=== PATIENT | female | born 1990 | race Caucasian/White ===

== ENCOUNTER 2019-11-11 12:31 | Emergency (ER) | payer BC, SELFPAY ==
[2019-11-11 12:34] VITALS: BP 149/77; PULSE 71; RESP 18; TEMP 36.7; O2SAT 99
--- NOTE | 2019-11-11 13:12 | ED.FEMALEGU ---
HPI - Female Genitourinary General Chief complaint: Urogenital-Female Stated complaint: medical examiner issues Time Seen by Provider: 11/11/19 12:40 Source: patient Mode of arrival: ambulatory Limitations: no limitations History of Present Illness HPI Narrative: This is a 29-year-old female that presents the emergency department for vaginal irritation since this morning. Reports she went and saw a skip pit worker because she thought she may have genital warts. Reports she was told that her vulva looked normal, but they took a swab just in case. Reports since she had that swab done she has had burning. Also reports frequency. Denies fever or hematuria. Related Data Home Medications Medication Instructions Recorded Confirmed No Home Medications 11/11/19 11/11/19 Allergies Allergy/AdvReac Type Severity Reaction Status Date / Time No Known Allergies Allergy Verified 11/11/19 12:38 Review of Systems Review of Systems: Narrative: CONSTITUTIONAL: Denies fever GASTROINTESTINAL: Denies abdominal pain, nausea, vomiting GENITOURINARY: Reports dysuria. Denies hematuria. All systems reviewed & are unremarkable except as noted in HPI and below PMFSH Past Medical History Medical History (Updated 11/11/19 @ 14:36 by Kendal Michelle PA-C) History of ADHD Surgical History Surgical History (Updated 11/11/19 @ 13:14 by Kendal Michelle PA-C) History of dilation and curettage Exam Narrative: Exam Narrative: GENERAL: Well-appearing, well-nourished, and in no acute distress. HEAD: Normocephalic, atraumatic. EYES: EOMI. CHEST: Clear to auscultation. No respiratory distress. No wheezes rales or rhonchi HEART: Regular rate and rhythm. No murmur heard. Normal peripheral pulses. ABDOMEN: Soft, nontender, nondistended, normal active bowel sounds. EXTREMITIES: Normal range of motion. No edema. SKIN: Warm, dry, no rash. NEURO: No focal deficits. Alert and oriented x3. PSYCH: Normal mood and affect PELVIC: Normal external genitalia. Mild cervical irritation. Mild amount of white cervical discharge. IUD strings in place Course Vital Signs Vital signs: Vital Signs Temperature 98.0 F 11/11/19 12:34 Pulse Rate 71 11/11/19 12:34 Respiratory Rate 18 11/11/19 12:34 Blood Pressure 149/77 H 11/11/19 12:34 Pulse Oximetry 99 11/11/19 12:34 Temperature 98.0 F 11/11/19 12:34 Pulse Rate 71 11/11/19 12:34 Respiratory Rate 18 11/11/19 12:34 Blood Pressure 149/77 H 11/11/19 12:34 Pulse Oximetry 99 11/11/19 12:34 MDM - Female Genitourinary MDM Narrative Medical decision making narrative: Patient presents the emergency department for vaginal irritation since this morning. Reports she had a swab done at her skip pit worker office and has had some burning since then. UA is normal. Trichomonas is negative. Genital culture, chlamydia and gonorrhea were sent. No obvious abnormalities on pelvic exam. Spoke with Dr. Peck. Plan was Silvadene cream and for her to follow-up again in clinic next week. Patient is stable and felt appropriate for further outpatient evaluation. She was given warnings to return to the ER Lab Data Attestation: I reviewed the patient's lab results. Labs: Lab Results 11/11/19 11/11/19 11/11/19 Range/Units 13:22 13:22 13:22 Urine Color Colorless (Yellow) Urine Appearance Clear (Clear) Urine pH 6.0 (5.0-9.0) Ur Specific [place] 1.006 (1.001-1.035) Urine Protein Negative (Negative) mg/dL Urine Glucose (UA) Negative (Negative) mg/dL Urine Ketones Negative (Negative) mg/dL Ur Blood (Man) Negative (Negative) Urine Nitrate Negative (Negative) Urine Bilirubin Negative (Negative) Urine Urobilinogen Negative (<2.0) mg/dL Leukocyte Esterase Rfl Negative (Negative) MARIELLE/UL C.trachomatis RNA (TMA) Pending N.gonorrhoeae RNA (TMA) Pending Trichomonas Direct ID Negative (Negative) UCG Bedside Result
[2019-11-11 13:34] LABS: Add Urine Microscopic? NO; Appearance Urine Clear (Clear); Bilirubin Urine Negative (Negative); Blood Urine Negative (Negative); Color Urine Colorless (Yellow); Glucose Urine UA Negative (Negative); Ketones Urine Negative (Negative); Leukocyte Esterase Ur Negative LEU/UL (Negative); Nitrate Urine Negative (Negative); Protein Urine Negative (Negative); Specific Grav Ur 1.006 (1.001-1.035); Urobilinogen Urine Negative mg/dL (<2.0)
== END 2019-11-11 14:46 | disposition home or self-care (01) ==
PROVIDERS: Physician Assistant; Emergency Provider Emergency Medicine; PCP Emergency Medicine
DX: N89.8 Other specified noninflammatory disorders of vagina (principal)
CPT/HCPCS: 81003; 81025; 87070; 87491; 87591; 87808; 99284

== ENCOUNTER 2020-10-09 08:57 | Outpatient (CLI) | payer OTHER, SELFPAY ==
--- NOTE | ~2020-10-09 | XR_ITS ---
EXAMINATION: XR knee RT 2V DATE: 10/09/2020 09:10 INDICATION: Right knee pain. TECHNIQUE: 2 views of right knee were obtained. COMPARISON: None. FINDINGS: Bone alignment is normal. No fracture. Joint spaces are normal. No knee joint effusion. IMPRESSION: 1. Normal right knee. Reviewed, dictated and finalized at location A. IMPRESSION: 1. Normal right knee.
== END 2020-10-09 08:58 | disposition home or self-care (01) ==
LOC: ANHIMG 09:01
PROVIDERS: PCP Emergency Medicine; Visit Provider Emergency Medicine
DX: M25.561 Pain in right knee (principal)
CPT/HCPCS: 73560

== ENCOUNTER 2021-01-10 11:01 | Outpatient (CLI) | payer OTHER, SELFPAY ==
[2021-01-12 03:25] LABS: Tissue Transglutaminase IgG Ab 3 U/mL (<6)
[2021-01-15 11:50] LABS: Tissue Transglutaminase IgA Ab 1 U/mL (<4)
== END 2021-01-10 11:02 | disposition home or self-care (01) ==
PROVIDERS: Visit Provider Internal Medicine Gastroenterology
DX: R19.4 Change in bowel habit (principal)
CPT/HCPCS: 36415; 83516

== ENCOUNTER → 2021-03-01 03:55 | Outpatient (CLI) | payer OTHER, SELFPAY ==
[2021-03-01 16:43] LABS: SARS-CoV-2 RNA PCR Negative
== END ==
PROVIDERS: Visit Provider Internal Medicine Gastroenterology
DX: Z01.812 Encounter for preprocedural laboratory examination (principal); Z20.822 Contact with and (suspected) exposure to COVID-19
CPT/HCPCS: C9803; U0003; U0005

== ENCOUNTER 2021-03-04 00:38 | Day surgery (SDC) | payer OTHER, SELFPAY ==
[2021-02-15 14:44] VITALS: BMI 24.5
[2021-03-04 11:10] VITALS: BP 110/72; PULSE 65; RESP 18; TEMP 36.6; O2SAT 99
[2021-03-04] MEDS: LACTATED RINGERS 1,000 ML 150 ML IV CONT (11:41)
--- NOTE | 2021-03-04 11:53 | P.PNAN_ITS ---
Anes - Initial Pre Proc Eval Procedure: Operation Date: 03/04/21 13:00 Proposed Procedures p Colonoscopy - Ayad Garza MD s [facility] Hemorrhoid Treatment - Ayad Garza MD Date/Time: 03/04/21 11:53 Surgeon: Ayad Garza MD Pre Op Diagnosis: change in bowel habits, hemorrhoids Patient Data Age: 30 Gender: F Height: 1.65 m Weight: 66.8 kg Last Vital Signs Temp 97.8 F 03/04/21 11:10 Pulse 65 03/04/21 11:10 Resp 18 03/04/21 11:10 BP 110/72 03/04/21 11:10 Pulse Ox 99 03/04/21 11:10 Allergies Allergy/AdvReac Type Severity Reaction Status Date / Time No Known Allergies Allergy Verified 03/04/21 11:09 Home Medications Medication Instructions Recorded Confirmed Type No Home Medications 11/11/19 02/15/21 History Patient hx anesthesia problems: none Family hx anesthesia problems: none Results Review: All pre-operative results and documents have been reviewed as part of the pre-operative evaluation. [facility] Past Medical History Medical History (Updated 01/10/21 @ 10:58 by Ayad Garza MD) Bowel habit changes Hemorrhoid History of ADHD Tobacco abuse Surgical History Surgical History History of dilation and curettage Social History Social History Smoking status: Current some day smoker Tobacco type: e-cigarettes/vaping Alcohol intake: current Living arrangements: with family Spiritual care concerns: No Anes - Eval Final PreProcedure Day of Procedure 03/04/21 11:53 Patient weight: normal Heart: regular rate and rhythm Lungs: clear to auscultation Airway: Mallampati scale class II Neurological: alert and oriented Last oral intake: >/= 8 hours ASA classification: II Emergent: no Anesthetic plan: proceed Anesthesia type and monitoring: general GIVS and standard monitoring Results Review: All pre-operative results and documents have been reviewed as part of the pre-operative evaluation. Informed Consent: The patient's anesthetic plan and its attendant risks and benefits were discussed with the patient/family/POA. Questions were solicited and answers provided to the satisfaction of the patient/family/POA.
--- NOTE | 2021-03-04 12:58 | PM.HPGS ---
History of Present Illness History of Present Illness Consent: Risks, benefits, and alternatives have been discussed and questions answered. Patient agrees to proceed with procedure. Chief complaint: change in bowel habits, hemorrhoids Narrative: Jen Chirinos is a 30 year old female with IBS and bowel habit changes after discontinued adderall and also hemorrhoids, never had colonoscopy Review of Systems Constitutional: Constitutional: Denies headache(s) and Denies weakness Eyes: Eyes: Denies blurry vision ENT: Reports Normal hearing present, Denies headache(s) and Denies neck pain Cardiovascular: Cardiovascular: Denies chest pain and Denies dyspnea Respiratory: Respiratory: Denies dyspnea Gastrointestinal: Gastrointestinal: Reports no additional gastrointestinal complaints Genitourinary: Genitourinary: Denies dysuria Musculoskeletal: Musculoskeletal: Denies neck pain Integumentary/Breasts: Skin/Breast: Denies dry skin Neurologic: Reports Normal hearing present, Denies headache(s) and Denies weakness Psychiatric: Psychiatric: Denies anxiety Endocrine: Endocrine: Denies change in body appearance Hematologic/Lymphatic: Hematologic/Lymphatic: Denies easy bleeding Allergic/Immunologic: Allergic/Immunologic: Denies urticaria PMFSH Past Medical History Medical History (Updated 01/10/21 @ 10:58 by Ayad Garza MD) Bowel habit changes Hemorrhoid History of ADHD Tobacco abuse Surgical History Surgical History History of dilation and curettage Social History Social History Smoking status: Current some day smoker Tobacco type: e-cigarettes/vaping Alcohol intake: current Living arrangements: with family Spiritual care concerns: No Meds Home Medications and Allergies Home Medications Medication Instructions Recorded Confirmed Type No Home Medications 11/11/19 02/15/21 History Allergies Allergy/AdvReac Type Severity Reaction Status Date / Time No Known Allergies Allergy Verified 03/04/21 11:09 Vital Signs Vital Signs - 24 hr 03/04/21 11:10 Temperature 97.8 F Pulse Rate 65 Respiratory Rate 18 Blood Pressure 110/72 Pulse Oximetry 99 Exam Const: General: comfortable and no acute distress HENMT: General nose exam: Normal nares present Eyes: General: appearance normal, both eyes and all related structures Neck: Neck: no JVD Resp: Auscultation: clear to auscultation bilaterally Cardio: Rate: regular rate Rhythm: regular rhythm GI: Inspection: non-distended GI Palp: Yes Soft to palpation Skin: General skin exam: normal color Neuro: General: gait normal Speech: normal speech Extrem: General: normal to inspection Psych: Mental Status: mental status grossly normal Assessment and Plan Assessment and plan (1) Bowel habit changes: Code(s): R19.4 - Change in bowel habit Status: Acute Assessment and Plan: colonoscopy (2) Hemorrhoid: Code(s): K64.9 - Unspecified hemorrhoids Status: Acute Assessment and Plan: treat hemorrhoids with IRC
[2021-03-04 13:21] VITALS: BP 97/58; PULSE 65; RESP 21; O2SAT 99
--- NOTE | 2021-03-04 13:21 | W.PM.PROC2 ---
Procedure Note - Detailed Date of Procedure 03/04/21 Pre-op Diagnosis change in bowel habits, hemorrhoids Post-op Diagnosis same Procedure Performed infrared coagulation (IRC) Surgeon Ayad Garza MD Indications hemorrhoids Description of Procedure rectal exam without lesions or fissure. As soon as we finished colonoscopy and she was still under sedation, I introduced anoscope and found grade II internal hemorrhoids at 12 o'clock position, non-bleeding, then used IRC probe total of 5 times at site for 1.5 seconds each time. Condition stable
[2021-03-04 13:31] VITALS: BP 110/67; PULSE 64; RESP 18; O2SAT 99
[2021-03-04 13:41] VITALS: BP 109/62; PULSE 62; RESP 19; O2SAT 100
== END 2021-03-04 13:50 | disposition home or self-care (01) ==
PROVIDERS: Visit Provider Internal Medicine Gastroenterology
PROC: 0DJD8ZZ Inspection of Lower Intestinal Tract, Via Natural or Artificial Opening Endoscopic (ICD-10-PCS; CPT 45378; principal; 2021-03-04 13:00)
PROC: (CPT 46930; 2021-03-04 13:00)
DX: R19.4 Change in bowel habit (principal); K64.1 Second degree hemorrhoids; K58.9 Irritable bowel syndrome, unspecified; K63.5 Polyp of colon; F17.290 Nicotine dependence, other tobacco product, uncomplicated
CPT/HCPCS: 46930; 45385; 88305; J2704; J7120

== ENCOUNTER 2023-10-28 19:36 | Emergency (ER) | payer OTHER, SELFPAY ==
[2023-10-28 19:46] VITALS: BP 132/71; PULSE 70; RESP 16; TEMP 37; O2SAT 99
--- NOTE | 2023-10-28 19:49 | ED.SKABFB ---
HPI - Skin/Abscess/Foreign Bdy General Chief complaint: Animal Bite Stated complaint: bee sting right arm Time Seen by Provider: 10/28/23 19:50 Source: patient Mode of arrival: ambulatory Limitations: no limitations History of Present Illness HPI narrative: 33-year-old female presents with complaint of redness, warmth and swelling to right upper extremity from bee sting. Bee sting happened approximately 2 days ago. Patient took 1 dose of Benadryl today. Has been applying Benadryl cream. Reports redness, swelling becoming worse. No difficulty breathing or swelling. All systems reviewed and negative except as noted above. Related Data Home Medications Medication Instructions Recorded Confirmed cholecalciferol (vitamin D3) 10 10 mcg PO DAILY 03/09/23 08/18/23 mcg (400 unit) capsule ergocalciferol (vitamin D2) 1,250 10/28/23 mcg (50,000 unit) capsule Allergies Allergy/AdvReac Type Severity Reaction Status Date / Time No Known Allergies Allergy Verified 08/18/23 08:54 Review of Systems Review of Systems: CONSTITUTIONAL: Denies fever, chills, or sweats. EYES: Denies visual changes, redness, or discharge. ENT: Denies rhinorrhea, congestion, sore throat, or otalgia. CARDIOVASCULAR: Denies chest pain, palpitations, or edema. RESPIRATORY: Denies cough or dyspnea. GASTROINTESTINAL: Denies abdominal pain, nausea, vomiting, or diarrhea. GENITOURINARY: Denies dysuria or hematuria. SKIN: Denies rash or itching. Reports swelling, redness and warmth to right upper arm. MUSCULOSKELETAL: Denies back pain, joint pain, or myalgia. NEUROLOGIC: Denies headache, numbness, or weakness. PSYCHIATRIC: Denies anxiety or depression. All other systems reviewed are negative, except as documented in HPI. 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 There is no relevant family history pertinent to the presenting complaint. Exam Narrative: GENERAL: This is a well-nourished, well-developed patient, in no apparent distress. HEAD: normocephalic, atraumatic. EYES: PERRL. Sclera clear/white. Vision is grossly intact. EARS: External ears normal NOSE: External nose normal NECK: Neck supple, non-tender without lymphadenopathy, masses or thyromegaly. CARDIOVASCULAR: Regular rate and rhythm without murmurs, gallops, or rubs. RESPIRATORY: Clear to auscultation. Breath sounds equal bilaterally. No wheezes, rales, or rhonchi. SKIN: warm, Dry, intact with no suspicious lesions or rash, good texture and turgor. erythethma with swelling and warm to posterior aspect R upper arm approx. 6 x8cm NEURO: awake, alert, and oriented to person, place and time. There were no obvious focal neurologic abnormalities. EXTREMITIES: No joint tenderness, effusion, or edema noted. Course Course Level of Care: Express Care Visit Vital Signs Vital signs: Makenna
== END 2023-10-28 20:00 | disposition home or self-care (01) ==
PROVIDERS: Emergency Provider Nurse Practitioner Family; PCP Nurse Practitioner Family
DX: T63.441A Toxic effect of venom of bees, accidental (unintentional), initial encounter (principal); F17.290 Nicotine dependence, other tobacco product, uncomplicated
CPT/HCPCS: 99213; G0463

== ENCOUNTER 2024-05-08 19:11 | Emergency (ER) | payer OTHER, SELFPAY ==
--- NOTE | ~2024-05-08 | XR_ITS ---
HISTORY: left heel pain from jumping in heels COMPARISON: None TECHNIQUE: 2 views of the left foot were performed FINDINGS: No acute fracture or dislocation is appreciated. No significant degenerative disease is noted. The base of the fifth metatarsal is intact. No calcaneal spur is noted. No significant soft tissue swelling is present. IMPRESSION: No acute fracture, as detailed above Reviewed, dictated and finalized at location A. [facility]
[2024-05-08 19:16] VITALS: BP 118/68; PULSE 72; RESP 18; TEMP 36.6; O2SAT 99
--- NOTE | 2024-05-08 19:57 | ED.LOWEXIN ---
HPI - Extremity Injury (Lower) General Chief Complaint: Extremity Injury, Lower Stated Complaint: left foot injury- unable to bare weight Time Seen by Provider: 05/08/24 19:46 Source: patient Mode of arrival: ambulatory Limitations: no limitations History of Present Illness HPI Narrative: This is a 33-year-old female who presents to the ED for chief complaint of left foot injury that occurred just prior to arrival. Patient states that she was wearing reports with a healing the and she was jumping up and down when the injury happened. States that she felt her foot roll of little bit and had subsequent pain to the heel. Denies ankle pain. Denies any pop. Denies numbness, weakness or any further injury. Related Data Home Medications ?Medication ?Instructions ?Recorded ?Confirmed ?Last Taken ?Type cholecalciferol (vitamin D3) 10 10 mcg PO DAILY 03/09/23 02/16/24 Unknown History mcg (400 unit) capsule ergocalciferol (vitamin D2) 1,250 10/28/23 02/16/24 Unknown History mcg (50,000 unit) capsule Allergies Allergy/AdvReac Type Severity Reaction Status Date / Time No Known Allergies Allergy Verified 05/08/24 19:12 Review of Systems Review of Systems: All systems as dictated in HPI [facility] Past Medical History Medical History ) Bowel habit changes Hemorrhoid History of ADHD Tobacco abuse Surgical History Surgical History ) History of dilation and curettage (2015) History of ear surgery (2014) left Family History Family History ) Father Diabetes mellitus Hypertension Mother Hypertension Diabetes mellitus Depression Sibling Hypertension Social History Social History ) Social History: 02/13/24 somewhat confident with medical forms/Received assistance for food and paying for medication Smoking status: Current some day smoker Tobacco type: e-cigarettes/vaping Alcohol intake: current Substance use: never Substance use type: does not use Do You Feel Safe in your Home?: Yes Lack of Transportation: No Lack of Food: Sometimes True Current Housing: I Have Housing Concerned About Future Housing: No Difficulty Paying Gas/Electric Bills: Decline to Answer Difficulty Paying for Meds: No Currently Unemployed: No Education: Trade/Vocational Certificate Difficulty w/ Childcare or Family Care: No Living arrangements: alone Occupation/Education: occupation 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 HEAD: Normocephalic, atraumatic. EYES: PERRLA and EOMI. ENT: Nares clear, no rhinorrhea or epistaxis. Mucous membranes moist. Oropharynx without tonsillar hypertrophy exudate or other lesions. NECK: Supple. No adenopathy or masses. CHEST: No respiratory distress. Clear to auscultation. No wheezes rales or rhonchi HEART: Regular rate and rhythm. No murmur heard. Normal peripheral pulses. ABDOMEN: Soft, nontender, nondistended, normal active bowel sounds. MSK: Left lower extremity: Tender most over the calcaneus reports. No medial or lateral malleolus tenderness. Cummings test negative. No bruising or swelling. Right lower extremity: Benign SKIN: Warm, dry, no rash. NEURO: Alert and oriented x4. No focal deficits. PSYCH: Normal mood and affect. Course Vital Signs Vital signs: Vital Signs Temperature 97.8 F 05/08/24 19:16 Pulse Rate 72 05/08/24 19:16 Respiratory Rate 18 05/08/24 19:16 Blood Pressure 118/68 05/08/24 19:16 Pulse Oximetry 99 05/08/24 19:16 Temperature 97.8 F 05/08/24 19:16 Pulse Rate 72 05/08/24 19:16 Respiratory Rate 18 05/08/24 19:16 Blood Pressure 118/68 05/08/24 19:16 Pulse Oximetry 99 05/08/24 19:16 MDM - Extremity Injury (Lower) MDM Narrative Medical decision making narrative: This is a 33-year-old female who presents to the ED for left foot injury just prior to arrival. Vitals normal. Exam remarkable for the above. Left foot x-ray showed no acute osseous findings. Cummings test is negative for Achilles injury. Presentation consistent with contusion. Patient will be discharged in stable condition. Supportive measures discussed and return precautions given. Patient is understanding and agreeable with plan for discharge with PCP follow-up. Discharge Plan Discharge Clinical Impression: Contusion of foot, left Patient Disposition: Home, Self-Care Condition: Stable Instructions: Antibiotic Form Additional Instructions: Your exam and imaging today are reassuring. Please take Tylenol and ibuprofen regularly for pain control. Ice and elevate the foot at home. If you have any new or worsening symptoms please return to the ER for further evaluation. Patient Language: Bahamian Prescriptions: No Action ergocalciferol (vitamin D2) 1,250 mcg (50,000 unit) capsule triamcinolone acetonide 0.1 % cream 1 applic topical BID PRN (Reason: insect bite) Qty: 30 0RF cholecalciferol (vitamin D3) 10 mcg (400 unit) capsule 10 mcg PO DAILY valacyclovir 1 gram tablet 1,000 mg PO DAILY Qty: 90 0RF dextroamphetamine-amphetamine [Adderall XR] 20 mg capsule,extended release 24hr 20 mg PO DAILY Qty: 30 0RF Follow-up/Referrals: Eloisa Chiang APN-C [Primary Care Provider] -
== END 2024-05-08 20:34 | disposition home or self-care (01) ==
PROVIDERS: Emergency Provider Physician Assistant; PCP Nurse Practitioner Family
DX: S90.32XA Contusion of left foot, initial encounter (principal); X58.XXXA Exposure to other specified factors, initial encounter
CPT/HCPCS: 73620; 99283

== ENCOUNTER 2025-01-23 13:20 | Outpatient (CLI) | payer OTHER, SELFPAY ==
--- OUTSIDE RECORDS SUMMARY | 2013-09-17 13:24 | XMS_ITS | Continuity of Care Document ---
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 Role Phone Unavailable Unavailable Unavailable Medications Medication Instructions Dosage Effective Dates (start - stop) Status Comments Formula Tab take 1 tablet by or al route every day - Active ferrous sulfate 325 mg (65 mg iron) Tab take 1 tablet (325MG) by ORAL route every day 325 MG - Active Procedures Procedure Date Wet олег, including preparations of va ginal, cervical or skin specimens OFFICE OUTPT EST 25 MIN COLLECTION OF VENOUS BLOOD BY VENIPUNCTU RE care, at-risk assessment care, at-risk enhanced service; antepartum management MENTAL HEALTH ASSESSMENT, BY NON-PHYSICI AN URINE TEST, BY VISUAL COLOR CO MPARISON METHODS Advance Directives Directive Yes / No Effective Date File Name No Information Encounters Encounter Description Practice Location Reason(s) For Visit Diagnoses Date Provider Providers Copied on Encounter [employer] [facility] , [address], [place], [place], [id number], [place] tel:[phone] [facility] [place] No Information 4 No Information OFFICE OUTPT EST 25 MIN [facility] , [address], [place], [place], [id number], [place] tel:[phone] [facility] [place] IOB (chief complaint) Supervision of other normal 2 No Information [facility] , [address], [place], [place], [address], [place] tel:[phone] [facility] [place] Supervision of normal first 2 [facility]. [address], [place], [place], [id number], [place]. tel:[phone] [facility] , [address], [place], [place], [address], [place] tel:[phone] [facility] [place] test (chief complaint) examination or test, unconfirmed 2 No Information Family History Family Member Type Diagnosis Age At Onset Father Problem (finding) hypertension Mother Problem (finding) hypertension Payers Payer name Insurance type Covered alliance party ID Authoriza tichrist(s) Medicaid - Medical [id number] Social History Type Description Quantity Date Captured Comments Sex Female Smoking Status No Information Sexual Orientation Straight or heterosexual Chief Complaint And Reason For Visit No Information Reason For Referral Reason For Referral No Information Plan Of Treatment Date Type Action Status Referral Referred To: [facility] [address] [place], [phone] Ordered: Referral: [facility]. Radiology. Appointment date/timeframe: 10/21/2011 ordered Future Order: Lab Order Wet Prep (Wet Prep), Appointment on: Ordered History Of Present Illness Encounter Date Complaint History Of Prese nt Illness No Information Functional Status Date Functional Assessmen t No Information Instructions Date Instruction Additional Infor mation No Information Assessments Type Assessment Date No Information Patient Care Teams Name Effective Dates (start - stop) Status Members No Information
--- OUTSIDE RECORDS SUMMARY | 2020-12-07 05:47 | XMS_ITS | Continuity of Care Document ---
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 chest pain or palpitation. Her thyroid uptodate scan was denied by insurance. Her recent tSh was actually normal ear pain1 Pt c/o intermitt ent itching left ear canal for two weeks. Pt denies any ear pain Pt denies any hearing loss. 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 GERD1 Pt has frequent GERd. pt is noncompliant with zantac. Pt never took zantac BID and she was taking here and there and she has not been on anything for a while Pt has daily GERd recently Pt denies any nausea, vomiting or abd pain weight gain1 Pt has been gain ing weight. pt gained 20 pounds during last 6 months. pt has been working more and she has not been eating healthy. pt is not very active ADD Pt has ADD Pt ta kes adderall and doing ok. Pt feels more focused. Pt feels more energy thyroid1 Pt has subclinic al hyperthyroidism. Pt has not done lab or thyroid uptake scan yet PHysical Pt needs annual physical pt has ADd, inattentive type. Pt takes addeall and doing ok pt feels more focused. Pt denie any chest pain or headache. Pt denies any weight gain or weight loss thyroid1 Pt denies any ch est pain or headache. Pt is noncompliant with thyroid uptake study and repeat thyroid lab. Pt has slighlty suppressed TSH but normal t4 ADD Pt has ADD., rodo ttentive type .Pt has difficlty with focus and concentration. Pt doing ok with adderall. Pt feels more focused cough1 Pt c./o producti ve coughing, running nose, sore throat, cold chill, mild nasuea for one week Pt denies any vomiting or diarrhea. Pt denies any fever but feels warm. pt went to ER and she was told that she has viral infection. Pt feels maliase and fatigue and some muscle pain. Pt feels very fatigue. Pt feels mild sob with coughing. GERD1 Pt has GERD. Pt takes zantac PRn only. Pt states that she does not have symptoms daily. Pt denies any abd pain mold Pt currently leslie es in a house with mold in the basement. Pt states that she is not sick with URI all the time except for last week. Pt states that the landlord is working for mold removal now. The mold grow is in the basement. Pt denies any sob. 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 Pt notices frequent burping and some burning sensation around her esophagus area thyroid1 Pt has slightly suppressed TSH with normal T4. Pt has normal TPO Pt denies any chest pain or palpitation PT denies any headache ADD Pt has aDD. pt h as diffiuclty with focus and concentration. Pt takes adderall and doing ok. Pt denie any abd pain Physical Pt needs annual physical. Pt has ADD Pt takes adderall and doing ok. Pt feels more enregy and more focused. Pt denies any abd pain or any appetite loss. Pt denies any anxiety anymore and she has not been taking any buspar. Pt denies any depression or any suicidal thought. Pt denies any other complaints ADD Pt has ADD pt ta kes adderall and doing ok. Pt feels more focused and more energy. Pt feels better organized. Pt denies any abd pain or appetite loss anxiety1 Pt states that s he has been under a lot of stress recently. Pt has difficulty sleeping. Pt denies any depression or any suicdial thought. Pt wants something for anxiety and stress. Pt denies any crying spells. Pt did not try lamictal. Pt does not want mood stabilizer. pt has been having panic attacks with hyperventilation. NO chest pain thyroid disorder Pt has slighlty suppressed tSH but she has normal T4. Her thyroid ultrasound is normal. Pt denies any chest pain or headache tobacco Pt smokes about 1 ppd. Pt wants to try quit smoking. Pt denies any SOB mood Pt states that s he has been having very bad mood swings lately. Pt states that she has high and lows and sometimes she is very irritible and is very angry. Pt sometimes is very irrational and sometimes even violent towards her financee. Pt denies any suicidal or homicidal thought. Pt denies any crying spells. Pt states that she does not feel depressed or anxious Pt denies hearing voices low D Pt has mild low vitamin D. Pt denies any history of spontaneous fracture UTI1 Pt c/o intermitt ent urinary frequency for several weeks. Pt denies any flank pain, fever, chill. Pt took bactrim for several days but then accidently lost her pill. thyroid Pt has chronical ly slighlty suppressed TSH. Pt denies any chest pain, headache or palpitation. aDD Pt takes adderal l. Pt has ADD Pt doing ok. Pt feels more energy and better focused. Pt states that sometimes she takes two addearll per day cough Additional infor mation: Pt c/o chest congestion coughing up phlegm with green color for one week Pt feels hoarseness. Pt denies any sore throat or ear pain. No fever. GERD1 Pt denies any GE Rd symptoms Pt states that ever since she stopped bahamian and spicy food, she has not had any GERD thyroid Pt has suppresse d TSH. Pt does not want to do ultrasound. Pt deneis any chest pain or headache PHysical Pt needs annual physical. Pt denies any gERd symptoms. Pt has ADd. Pt takes adderall and doing ok. Pt denies any abd pain or appetite loss. Pt denies any other complaints Instructions Date Instruction Additional Infor mation Increase physical activity Relat ed to Attention deficit Quit smoking Related to Encou nter for general adult medical exam w abnormal findings Special diet education Related t o Body mass index (BMI) 24.0-24.9, adult Quit smoking Related to Abnor mal weight loss Prescribed dietary intake Relate d to Body mass index (BMI) 27.0-27.9, adult Quit smoking Related to Atten tion deficit Special diet education Related t o Body mass index (BMI) 27.0-27.9, adult Increase physical activity Relat ed to Otalgia, left ear Weight management Related to [place] Coordinator lgia, left ear Special diet education Related t o Body mass index (BMI) 29.0-29.9, adult Quit smoking Related to Atten tion deficit Quit smoking Related to Encnt r for general adult medical exam w/o abnormal findings Prescribed Activity and Exercise Education Related to Dietary Surveillance and Counseling Prescribed Diet Educ ation/Lifestyle Education Regarding Diet Related to Dietary Surveillance and Counseling Prescribed Activity and Exercise Education Related to Dietary Surveillance and Counseling Prescribed Diet Educ ation/Lifestyle Education Regarding Diet Related to Dietary Surveillance and Counseling Quit smoking Related to Atten tion deficit Dietary counseling Related to Di etary surveillance counseling Decrease caloric intake Related to Dietary surveillance counseling Assessments Type Assessment Date No Information
--- OUTSIDE RECORDS SUMMARY | 2025-01-23 15:48 | XMS_ITS | Clinical Summary ---
Author Organization [facility] Address [address] [place] [address] Care Team Providers Care Char Belt Operator Name Role Phone Malik Sanz MD Primary Care Provider [phone] Allergies No known active allergies Medications dextroamphetami ne-amphetamine (ADDERALL) 20 mg tablet TAKE 1 TABLET BY MOUTH EVERY MORNING AND 1/2 TABLET BY MOUTH AROUND 1PM DAILY 10/03/2020 Active ergocalciferol (VITAMIN D) 50,000 unit capsule Take 50,000 Units by mouth 10/03/2020 Active famotidine (PEPCID) 40 mg tablet Take 40 mg by mouth daily 10/02/2020 Active valACYclovir (VALTREX) 500 mg tablet Take 500 mg by mouth daily 10/03/2020 Active Active Problems Problem Noted Date Diagnosed Date Pes anserine bursitis of the right knee 10/13/19 21 Surgical History Surgery Date Site/Laterality Comments EAR SURGERY Left DILATION AND CURETTAGE OF UTERUS 05/11/2017 - 05/10/2018 Medical History Medical History Date Comments ADHD (attention deficit hyperactivity disorder) Family History Medical History Relation Name Comments Arthritis Father Diabetes Father Gout Father Arthritis Mother Diabetes Mother Relation Name Status Comments Father Mother Social History Tobacco Use Types Packs/Day Years Used Date Smoking Tobacco: Every Day Personal Safety Answer Date Recorded Getting School Help Needed Not on file 06/30 Comments Unknown Sex and Gender Information Value Date Recorded Sex Assigned at Not on file Legal Sex Female 9:28 AM [employer] Gender Identity Not on file Sexual Orientation Not on file 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 Not on file Not on file Obstetrics History Last Filed Vital Signs Vital Sign Reading Time Taken Comments Blood Pressure - - Pulse - - Temperature - - Respiratory Rate - - Oxygen Saturation - - Inhaled Oxygen Concentration - - Weight 70.3 kg (155 lb) 10/12/2020 8:47 AM CDT Height 165.1 cm (5' 5) 10/12/2020 8:47 AM CDT Body Mass Index 25.79 10/12/2020 8:47 AM CDT Plan of Treatment Not on file Insurance [facility] Care Teams Char Belt Operator Relationship Specialty Start Date End Date Malik Sanz MD [facility] [place] [address] [place] [address] PCP - General Family Medicine 09/06/20
--- OUTSIDE RECORDS SUMMARY | 2025-01-23 15:48 | XMS_ITS | Clinical Summary ---
Author Organization [facility] Address [address] [place] [id number] Phone Care Team Providers Care Magnet Placer Name Role Phone Malik Sanz MD Primary Care Provider [phone] Allergies No known active allergies Medications dextroamphetami ne-amphetamine (ADDERALL) 20 mg tablet dextroamphetamin e-amphetamine 20 mg tablet Active levonorgestreL (Mirena) 20 mcg/24 hours (5 yrs) 52 mg IUD Mirena 20 mcg/24 hours (5 yrs) 52 mg intrauterine device Take by intrauterine route. 7 Active doxycycline hyclate (VIBRAMYCIN) 100 mg capsule Take 1 Capsule (100 mg) by mouth 2 times daily. 14 Capsule 0 Active lidocaine (XYLOCAINE) 2 % Solution Apply 5 mL to affected area every 6 hours as needed for Pain. 40 mL 0 Active Active Problems Problem Noted Date Diagnosed Date Tobacco use 11/18/2019 Social History Tobacco Use Types Packs/Day Years Used Date Smoking Tobacco: Every Day Cigarettes Alcohol Use Standard Drinks/Week Comments No 0 (1 standard drink = 0.6 oz pur e alcohol) Comments Unknown Sex and Gender Information Value Date Recorded Sex Assigned at Not on file Legal Sex Female 2:46 AM CDT Gender Identity Not on file Sexual Orientation Not on file Last Filed Vital Signs Vital Sign Reading Time Taken Comments Blood Pressure 124/72 11/18/2019 8:47 AM CDT Pulse 92 08/22/2012 4:00 AM CDT Temperature 36.4 C (97.6 F) 11/18/2019 8:47 AM CDT Respiratory Rate 18 11/18/2019 8:47 AM CDT Oxygen Saturation 100% 11/18/2019 8:47 AM CDT Inhaled Oxygen Concentration - - Weight 65.8 kg (145 lb) 11/18/2019 8:47 AM CDT Height 165.1 cm (5' 5) 11/18/2019 8:47 AM CDT Body Mass Index 24.13 11/18/2019 8:47 AM CDT Plan of Treatment Health Maintenance Due Date Last Done Comments DTAP/TDAP/TD VACCINES (1 - Tdap) 09/13/2010 HEPATITIS B VACCINES (1 of 3 - 19+ 3-dose series) 10/2010 HPV/Cotest (21-29) 09/13/2012 HPV VACCINES (1 - 3-dose SCDM series) 09/13/2018 CERVICAL CANCER SCREENING 09/13/2021 HPV/Cotest (30-65) 09/13/2021 PAP SMEAR 09/13/2021 INFLUENZA VACCINE (#1) 2024 Insurance PREFERRED Care Teams Magnet Placer Relationship Specialty Start Date End Date Malik Sanz MD PCP - General Family Practice 08/22/12
--- OUTSIDE RECORDS SUMMARY | 2025-01-23 15:48 | XMS_ITS | Clinical Summary ---
Author Organization [facility] [facility] Address [address] [address] Care Team Providers Care Cone Cleaner Name Role Phone Malik Sanz MD Primary Care Provider [phone] Source Comments [facility] [facility],non-owned Affiliates and Associated Physician Practices is amultiple site organization consisting of ambulatory clinics and hospital sitesin [place], [place], [place] and [place]. This disclosure is being madepursuant to the Care Everywhere program and may not contain all informatio navailable regarding this patient. Last updated 18[employer] Allergies No known active allergies Medications * Be aware that medications may not be up to date on this document. Alwaysverify current medications with the patient. acyclovir (ZOVIRAX) 200 MG capsuleIndicati ons:Recurrent Herpes Simplex of Genital Take 400 mg by mouth 2 times daily. Indications: Recurrent Genital Herpes Active Social History Tobacco Use Types Packs/Day Years Used Date Smoking Tobacco: Every Day Cigarettes 0.5 6 Smokeless Tobacco: Never Tobacco Cessation:Ready to Q uit: No; Counseling Given: Yes Alcohol Use Standard Drinks/Week Comments No 0 (1 standard drink = 0.6 oz pur e alcohol) Comments Yes Sex and Gender Information Value Date Recorded Sex Assigned at Not on file Legal Sex Female 1:02 PM WATER SANDER Gender Identity Not on file Sexual Orientation Not on file Last Filed Vital Signs Vital Sign Reading Time Taken Comments Blood Pressure 91/51 08/28/2011 9:31 AM CDT Pulse 65 08/28/2011 9:31 AM CDT Temperature 36.8 C (98.2 F) 08/28/2011 9:31 AM CDT Respiratory Rate 16 08/28/2011 9:31 AM CDT Oxygen Saturation 98% 08/28/2011 9:31 AM CDT Inhaled Oxygen Concentration - - Weight 69.4 kg (153 lb) 08/27/2011 11:38 PM CDT Height 167.6 cm (5' 6) 08/27/2011 11:38 PM CDT Body Mass Index 24.69 08/27/2011 11:38 PM CDT Plan of Treatment Health Maintenance Due Date Last Done Comments HIV SCREENING 09/13/2006 HEPATITIS C SCREENING 09/09/2009 DTAP/TDAP/TD VACCINES (1 - Tdap) 09/13/2010 HEPATITIS B VACCINE (1 of 3 - 19+ 3-dose series) 09/13/2010 HPV VACCINE (1 - 3-dose SCDM series) 09/13/2018 DEPRESSION SCREENING 05/11/2024 COVID-19 VACCINE (1 - 2023-2 5 season) 2025 INFLUENZA VACCINE (#1) 2025 ZOSTER VACCINE (1 of 2) 09/13/2041 Respiratory Syncytial Virus (RSV) Vaccine Pt: or over 60 yrs (1 - 1-dose 75+ series) 09/13/2066 HIB VACCINE Aged Out No longer eligi ble based on patient's age to complete this topic MENINGOCOCCAL (Group B) VACC INE SHARED DECISION-MAKING Aged Out No longer eligibl e based on patient's age to complete this topic MENINGOCOCCAL GROUPS A/C/Y/W VACCINE Aged Out No longer eligible b ased on patient's age to complete this topic PNEUMOCOCCAL VACCINE Aged Out No long er eligible based on patient's age to complete this topic Insurance [facility] Advance Directives * FULL RESUSCITATION (Latest Code Status on File) Date Activated Date Inactivated Comments 06/02/2011 12:16 AM 06/04/2011 3:12 AM Care Teams Cone Cleaner Relationship Specialty Start Date End Date Malik Sanz MD PCP - General 03/05/21
--- OUTSIDE RECORDS SUMMARY | 2025-01-23 15:48 | XMS_ITS | Clinical Summary ---
Author Organization [facility] Address [address] [place] [id number] Care Team Providers Care Traffic Safety Administrator Name Role Phone Malik Sanz MD Primary Care Provider [phone] Allergies No known active allergies Medications No known medications Family History Medical History Relation Comments Hypertension Father Hypertension Mother Relation Status Comments Father Alive Mother Alive Social History Tobacco Use Types Packs/Day Years Used Date Smoking Tobacco: Former Cigarettes Smokeless Tobacco: Never Alcohol Use Standard Drinks/Week Comments No 0 (1 standard drink = 0.6 oz pur e alcohol) Comments No Sex and Gender Information Value Date Recorded Sex Assigned at Not on file Legal Sex Female 5:35 PM CDT Gender Identity Not on file Sexual Orientation Not on file Last Filed Vital Signs Vital Sign Reading Time Taken Comments Blood Pressure 119/77 09/05/2017 11:40 AM CDT Pulse 85 09/05/2017 11:40 AM CDT Temperature 36.7 C (98 F) 09/05/2017 11:40 AM CDT Respiratory Rate 18 09/05/2017 11:40 AM CDT Oxygen Saturation 99% 09/05/2017 11:40 AM CDT Inhaled Oxygen Concentration - - Weight 72.6 kg (160 lb) 09/05/2017 11:40 AM CDT Height 165.1 cm (5' 5) 09/05/2017 11:40 AM CDT Body Mass Index 26.63 09/05/2017 11:40 AM CDT Plan of Treatment Health Maintenance Due Date Last Done Comments Cervical Cancer Screening Pa p Smear (Age 30 to 64) Every 3 Years 1991 Annual Physical 09/13/1994 Hepatitis C 09/13/2009 DTaP, Tdap and Td Vaccines ( 1 - Tdap) 09/13/2010 Hepatitis B Vaccines (1 of 3 - 19+ 3-dose series) 09/13/2010 HPV Vaccines (1 - 3-dose SCD M series) 09/13/2018 Cervical Cancer Screening Pa p with HPV Testing (Age 30 to 64) Every 5 Years 09/13/2021 Cervical Cancer Screening with HPV 09/13/2021 COVID-19 Vaccine (1 - 2023-2 5 season) 2025 Meningococcal B Vaccine Aged Out No l onger eligible based on patient's age to complete this topic Meningococcal Vaccine Aged Out No camacho francesco eligible based on patient's age to complete this topic Pneumococcal Vaccine: Pediat rics (0 to 5 Years) and At-Risk Patients (6 to 49 Years) Aged Out No longer eligible b ased on patient's age to complete this topic RSV Immunizations Under 20 Months Aged Out No longer eligible based on patient's age to complete this topic [place] [address] Care Teams Traffic Safety Administrator Relationship Specialty Start Date End Date Malik Sanz MD PCP - General FAMILY PRACTICE 09/05/17
== END 2025-01-23 13:21 | disposition home or self-care (01) ==
LOC: ANHAUDIO 13:20
PROVIDERS: PCP Nurse Practitioner Family; Visit Provider Otolaryngology
DX: H90.3 Sensorineural hearing loss, bilateral (principal); H69.92 Unspecified Eustachian tube disorder, left ear; H93.12 Tinnitus, left ear; J34.2 Deviated nasal septum; M26.609 Unspecified temporomandibular joint disorder, unspecified side; Z86.69 Personal history of other diseases of the nervous system and sense organs
CPT/HCPCS: 92557; 92567